=== PATIENT | female | born 1990 | race Asian ===

== ENCOUNTER 2019-04-09 22:04 | Emergency (ER) | payer MEDICAID ==
[~2019-04-09] VITALS: Ht 157.5 cm; Wt 56.3 kg
[2019-04-09 22:22] VITALS: BP 116/75
[2019-04-09] MEDS ORDERED: fluconazole 150mg tablet PO ONE (23:10)
== END 2019-04-09 23:19 | disposition home or self-care (01) ==
LOC: ER 22:05
DX: B37.3 Candidiasis of vulva and vagina (principal)
CPT/HCPCS: 99283